=== PATIENT | female | born 2000 | race Caucasian/White ===

== ENCOUNTER 2024-06-05 19:14 | Emergency (ER) | payer SELFPAY ==
[~2024-06-05] VITALS: Ht 162.6 cm; Wt 77.0 kg
[2024-06-05 19:25] VITALS: O2SAT 98
[2024-06-05] MEDS: KETOROLAC 30MG/ML VIAL IM ONE (20:00)
[2024-06-05 20:09] VITALS: BP 126/77; PULSE 77; RESP 18; TEMP 36.94740; O2SAT 99
== END 2024-06-05 20:15 | disposition home or self-care (01) ==
LOC: ER 19:14
DX: K08.89 Other specified disorders of teeth and supporting structures (principal)
CPT/HCPCS: 99283; 96372; J1885